=== PATIENT | male | born 1995 | race Caucasian/White ===

== ENCOUNTER 2017-10-11 15:46 | Emergency (ER) | payer BC ==
[~2017-10-11] VITALS: Ht 188 cm; Wt 67.9 kg
[2017-10-11 15:50] VITALS: TEMP 36.6; Ht 188 cm; Wt 67.9 kg
[2017-10-11] MEDS ORDERED: HYDROmorphone INJ 1 MG/ML SYR IM STA (16:01)
[2017-10-11] MEDS ORDERED: ONDANSETRON 4MG OD TAB PO STA (16:01)
--- NOTE | 2017-10-11 16:29 | EMERGENCY ROOM VISIT NOTE ---
History Report prepared by Alicia: Alden Valencia Under the Supervision of: Dr. Gino Infante M.D. First contact with patient: 15:57 Chief Complaint: TESTICULAR PAIN Stated Complaint: TESTICLE PAIN,CHILLS, ABD PAIN,NAUSEA,NUMB HANDS History of Present Illness The patient is a 22 year old male who presents to the Emergency Room with complaints of constant right testicular pain starting around 1430 today while doing homework. He currently rates her discomfort as an 8/10 in severity. The patient states that he has been nauseous and vomiting. The patient notes that he has a history of an appendectomy. He denies any history of torsion. Source of History: patient Onset: 1430 Position: other (right testicular) Symptom Intensity: 8/10 Timing: constant Associated Symptoms: + nausea, + vomiting Review of Systems See HPI for pertinent positives & negatives. A total of 10 systems reviewed and were otherwise negative. Past Medical & Surgical Surgical Problems: (1) History of appendectomy Social History Smoking Status: Former Smoker Marital Status: single Housing Status: lives with roommate Occupation Status: [employer] Current/Historical Medications Scheduled Ciprofloxacin Hcl (Cipro), 1 TAB PO BID Allergies Coded Allergies: Sulfa Antibiotics (Unverified Allergy, Unknown, ., 10/11/17) Physical Exam Vital Signs Date Time Temp Pulse Resp B/P (MAP) Pulse Ox O2 Delivery O2 Flow Rate FiO2 10/11/17 19:40 88 107/68 99 10/11/17 18:42 72 99/54 98 Room Air 10/11/17 15:50 36.6 63 18 120/56 96 Room Air Physical Exam GENERAL: Patient is a healthy-appearing well-nourished male HEAD: Normocephalic atraumatic EYES: Ocular movements intact pupils equal and react to light OROPHARYNX mucous membranes are moist no exudates present no erythema or edema present NECK: Supple no nuchal rigidity CHEST: Good equal expansion LUNGS: Clear and equal to auscultation CARDIAC: Normal S1 and S2 ABDOMEN: Soft nontender no guarding BACK: No CVA tenderness : Tenderness to the right testicle. EXTREMITIES: No pain upon palpation normal muscle strength in all groups no clubbing cyanosis or edema NEURO: Patient is following commands and answering questions appropriately. Alert and oriented x3 Cranial Nerves 2-12 grossly intact Medical Decision & Procedures ER Provider Diagnostic Interpretation: Radiology results as stated below per my review and radiologist interpretation: (TESTICULAR) SCROTUM-CONT CLINICAL HISTORY: 22 years-old Male with Pt c/o severe testicular pain . Acute severe testicular pain with chills, abdominal pain and nausea COMPARISON STUDY: None available TECHNIQUE: Real-time, grayscale, and color Doppler sonography of the testes and scrotum is performed. Images are reviewed in the transverse and longitudinal planes. FINDINGS: RIGHT HEMISCROTUM: The right testis measures 5.2 x 2.7 x 2.8 cm and the parenchyma appears unremarkable. No intratesticular mass is seen. Normal-appearing arterial inflow is present within the right testicle. The right epididymal head appears normal. No varicocele or hydrocele is identified. LEFT HEMISCROTUM: The left testis measures 5.1 x 2.3 x 3.3 cm and the parenchyma appears unremarkable. No intratesticular mass is seen. Normal-appearing arterial inflow is present within the left testicle. The left epididymal head appears normal. No varicocele or hydrocele is identified. IMPRESSION: Unremarkable sonographic appearance of the bilateral testicles and epididymides without evidence of torsion or mass. The above report was generated using voice recognition software. It may contain grammatical, syntax or spelling errors. Electronically signed by: Shiraz Cheng M.D. 10/11/2017 4:50 PM Dictated Date/Time: 10/11/2017 4:47 PM RENAL ULTRASOUND CLINICAL HISTORY: Right flank pain. COMPARISON STUDY: None. TECHNIQUE: Sonography of the kidneys and the urinary bladder was performed. FINDINGS: The right kidney measures 11.5 x 5.7 x 6.9 cm and the left measures 11.2 x 5.5 x 6 cm. There is no hydronephrosis. No calculi or masses are identified by sonography. Renal echogenicity, size and cortical thickness are normal. Neither ureteral jet was identified. IMPRESSION: Normal renal ultrasound. No hydronephrosis. Electronically signed by: Francis Matos M.D. 10/11/2017 5:23 PM Dictated Date/Time: 10/11/2017 5:22 PM KUB HISTORY: Acute right-sided flank pain Pt c/o Rt sided flank pain COMPARISON: Renal ultrasound of same day. FINDINGS: The bowel gas pattern is non-obstructive. There is no organomegaly. No renal calculi. No ureteral calculi. Probable phlebolith of the right hemipelvis, 2 mm. No pneumoperitoneum or pneumatosis. No fracture. 10 mm sclerotic focus of the right proximal femur suggests bone island. IMPRESSION: 1. Nonobstructive bowel gas pattern. 2. No renal or ureteral stones. Electronically signed by: Shiraz Cheng M.D. 10/11/2017 5:45 PM Dictated Date/Time: 10/11/2017 5:43 PM Laboratory Results 10/11/17 17:40 Red Blood Count 4.96, Mean Corpuscular Volume 87.7, Mean Corpuscular Hemoglobin 31.7, Mean Corpuscular Hemoglobin Concent 36.1, Mean Platelet Volume 9.3, Neutrophils (%) (Auto) 86.0, Lymphocytes (%) (Auto) 8.2, Monocytes (%) (Auto) 5.0, Eosinophils (%) (Auto) 0.3, Basophils (%) (Auto) 0.2, Neutrophils # (Auto) 10.08, Lymphocytes # (Auto) 0.96, Monocytes # (Auto) 0.58, Eosinophils # (Auto) 0.03, Basophils # (Auto) 0.02 10/11/17 17:40 Test 10/11/17 17:40 10/11/17 17:55 White Blood Count 11.71 K/uL (4.8-10.8) Red Blood Count 4.96 M/uL (4.7-6.1) Hemoglobin 15.7 g/dL (14.0-18.0) Hematocrit 43.5 % (42-52) Mean Corpuscular Volume 87.7 fL (80-100) Mean Corpuscular Hemoglobin 31.7 pg (25-34) Mean Corpuscular Hemoglobin Concent 36.1 g/dl (32-36) Platelet Count 246 K/uL (130-400) Mean Platelet Volume 9.3 fL (7.4-10.4) Neutrophils (%) (Auto) 86.0 % Lymphocytes (%) (Auto) 8.2 % Monocytes (%) (Auto) 5.0 % Eosinophils (%) (Auto) 0.3 % Basophils (%) (Auto) 0.2 % Neutrophils # (Auto) 10.08 K/uL (1.4-6.5) Lymphocytes # (Auto) 0.96 K/uL (1.2-3.4) Monocytes # (Auto) 0.58 K/uL (0.11-0.59) Eosinophils # (Auto) 0.03 K/uL (0-0.5) Basophils # (Auto) 0.02 K/uL (0-0.2) RDW Standard Deviation 40.1 fL (36.4-46.3) RDW Coefficient of Variation 12.5 % (11.5-14.5) Immature Granulocyte % (Auto) 0.3 % Immature Granulocyte # (Auto) 0.04 K/uL (0.00-0.02) Anion Gap 6.0 mmol/L (3-11) Est Creatinine Clear Calc Drug Dose 103.0 ml/min Estimated GFR () 111.9 Estimated GFR (Non- 96.5 BUN/Creatinine Ratio 14.2 (10-20) Calcium Level 9.3 mg/dl (8.5-10.1) Total Bilirubin 0.6 mg/dl (0.2-1) Direct Bilirubin 0.2 mg/dl (0-0.2) Aspartate Amino Transf (AST/SGOT) 16 U/L (15-37) Alanine Aminotransferase (ALT/SGPT) 32 U/L (12-78) Alkaline Phosphatase 73 U/L (45-117) Total Protein 7.5 gm/dl (6.4-8.2) Albumin 4.6 gm/dl (3.4-5.0) Lipase 140 U/L (73-393) Urine Color DK YELLOW Urine Appearance CLEAR (CLEAR) Urine pH 7.5 (4.5-7.5) Urine Specific [place] 1.022 (1.000-1.030) Urine Protein 1+ (NEG) Urine Glucose (UA) NEG (NEG) Urine Ketones NEG (NEG) Urine Occult Blood 1+ (NEG) Urine Nitrite NEG (NEG) Urine Bilirubin NEG (NEG) Urine Urobilinogen NEG (NEG) Urine Leukocyte Esterase TRACE (NEG) Urine WBC (Auto) 5-10 /hpf (0-5) Urine RBC (Auto) 5-10 /hpf (0-4) Urine Hyaline Casts (Auto) 5-10 /lpf (0-5) Urine Epithelial Cells (Auto) >30 /lpf (0-5) Urine Bacteria (Auto) 1+ (NEG) Urine Renal Epithelial Cells /lpf (0-5) Urine Mucus PRESENT (NONE PRSENT) Urine Sperm (Auto) PRESENT (NOT PRESENT) Labs reviewed by ED physician. Medications Administered Medications (Trade) Dose Ordered Sig/Kamlesh Route Start Time Stop Time Status Last Admin Dose Admin Ondansetron HCl (Zofran Odt) 4 mg ONE STAT PO 10/11/17 16:01 10/11/17 16:03 DC 10/11/17 16:01 4 MG Hydromorphone HCl (Dilaudid Inj) 1 mg NOW STAT IM 10/11/17 16:01 10/11/17 16:03 DC 10/11/17 16:01 1 MG Ceftriaxone Sodium (Rocephin Inj) 1 gm NOW STAT IV 10/11/17 18:37 10/11/17 18:39 DC 10/11/17 19:05 1 GM Azithromycin (Zithromax Tab) 1,000 mg NOW STAT PO 10/11/17 18:37 10/11/17 18:39 DC 10/11/17 19:06 1,000 MG Ciprofloxacin (Cipro Tab) 500 mg NOW STAT PO 10/11/17 18:37 10/11/17 18:39 DC 10/11/17 19:05 500 MG ED Course 1557: Past medical records reviewed. The patient was evaluated in room B7. A complete history and physical examination was performed. 1601: Dilaudid 1mg IM, Zofran Odt 4mg PO Medical Decision Differential diagnosis: Etiologies such as torsion, mass, infection, hernia, hydrocele, epididymitis, trauma, intra-abdominal process, as well as others were entertained. This is a 22-year-old male who presents emergency department complaining of testicular pain. Based on the patient's presentation he was immediate was sent for an ultrasound of the testicles however there is no evidence of torsion on the ultrasound. The patient's parents did show up in the emergency department and I did discuss this finding with the parents. As the patient's pain is radiating into his back I feel he most likely has a kidney stone. In addition serial abdominal examinations were performed on both the patient's scrotum as well as his abdomen and at no time did the patient exhibit a surgical abdomen or evidence of testicular torsion. Based on these findings I felt he is most likely suffering from a kidney stone. His KUB shows a 2 mm calcification that I believe the patient may have already passed. In addition the patient has a large amount of white blood cells in his urine. Based on this finding I will treat the patient as if he hasn't infection. He was given Rocephin azithromycin and Cipro in the emergency department. The patient this point was pain-free and was refusing pain medications for her at home. I do feel he can be discharged however is stressed the need to return if his pain continues or if he develops fevers. Patient and parents were in agreement with the treatment plan. Impression Primary Impression: Flank pain Additional Impression: UTI (urinary tract infection) Scribe Attestation The scribe's documentation has been prepared under my direction and personally reviewed by me in its entirety. I confirm that the note above accurately reflects all work, treatment, procedures, and medical decision making performed by me. Departure Information Dispostion Home / Self-Care Prescriptions Ciprofloxacin Hcl (CIPRO) 500 Mg Tab 1 TAB PO BID for 10 Days, #20 TAB Prov: Gino Infante MD 10/11/17 Referrals No Doctor, Assigned (PCP) Patient Instructions My [facility] Problem Qualifiers Additional Impression: UTI (urinary tract infection) Urinary tract infection type: acute cystitis Hematuria presence: with hematuria Qualified Codes: N30.01 - Acute cystitis with hematuria
--- NOTE | 2017-10-11 16:51 | DIAGNOSTIC IMAGING REPORT ---
(TESTICULAR) SCROTUM-CONT CLINICAL HISTORY: 22 years-old Male with Pt c/o severe testicular pain . Acute severe testicular pain with chills, abdominal pain and nausea COMPARISON STUDY: None available TECHNIQUE: Real-time, grayscale, and color Doppler sonography of the testes and scrotum is performed. Images are reviewed in the transverse and longitudinal planes. FINDINGS: RIGHT HEMISCROTUM: The right testis measures 5.2 x 2.7 x 2.8 cm and the parenchyma appears unremarkable. No intratesticular mass is seen. Normal-appearing arterial inflow is present within the right testicle. The right epididymal head appears normal. No varicocele or hydrocele is identified. LEFT HEMISCROTUM: The left testis measures 5.1 x 2.3 x 3.3 cm and the parenchyma appears unremarkable. No intratesticular mass is seen. Normal-appearing arterial inflow is present within the left testicle. The left epididymal head appears normal. No varicocele or hydrocele is identified. IMPRESSION: Unremarkable sonographic appearance of the bilateral testicles and epididymides without evidence of torsion or mass. The above report was generated using voice recognition software. It may contain grammatical, syntax or spelling errors. Electronically signed by: Shiraz Cheng M.D. 10/11/2017 4:50 PM Dictated Date/Time: 10/11/2017 4:47 PM
--- NOTE | 2017-10-11 17:24 | DIAGNOSTIC IMAGING REPORT ---
RENAL ULTRASOUND CLINICAL HISTORY: Right flank pain. COMPARISON STUDY: None. TECHNIQUE: Sonography of the kidneys and the urinary bladder was performed. FINDINGS: The right kidney measures 11.5 x 5.7 x 6.9 cm and the left measures 11.2 x 5.5 x 6 cm. There is no hydronephrosis. No calculi or masses are identified by sonography. Renal echogenicity, size and cortical thickness are normal. Neither ureteral jet was identified. IMPRESSION: Normal renal ultrasound. No hydronephrosis. Electronically signed by: Francis Matos M.D. 10/11/2017 5:23 PM Dictated Date/Time: 10/11/2017 5:22 PM
--- NOTE | 2017-10-11 17:46 | DIAGNOSTIC IMAGING REPORT ---
KUB HISTORY: Acute right-sided flank pain Pt c/o Rt sided flank pain COMPARISON: Renal ultrasound of same day. FINDINGS: The bowel gas pattern is non-obstructive. There is no organomegaly. No renal calculi. No ureteral calculi. Probable phlebolith of the right hemipelvis, 2 mm. No pneumoperitoneum or pneumatosis. No fracture. 10 mm sclerotic focus of the right proximal femur suggests bone island. IMPRESSION: 1. Nonobstructive bowel gas pattern. 2. No renal or ureteral stones. Electronically signed by: Shiraz Cheng M.D. 10/11/2017 5:45 PM Dictated Date/Time: 10/11/2017 5:43 PM
[2017-10-11 18:06] LABS: BASO % 0.2 %; BASO ABS # 0.02 K/uL (0-0.2); COMPLETE YES; EOS % 0.3 %; HEMATOCRIT 43.5 % (42-52); IG% 0.3 %; LYMPH % 8.2 %; LYMPH ABS # 0.96 K/uL (1.2-3.4); MEAN CELL VOLUME 87.7 fL (80-100); MEAN CORPUSCULAR HEMOGLOBIN 31.7 pg (25-34); MEAN CORPUSCULAR HGB CONC 36.1 g/dl (32-36); MEAN PLATELET VOLUME 9.3 fL (7.4-10.4); PLATELET COUNT 246 K/uL (130-400); RED BLOOD COUNT 4.96 M/uL (4.7-6.1); WHITE BLOOD COUNT 11.71 K/uL (4.8-10.8)
[2017-10-11 18:12] LABS: URINE APPEARANCE CLEAR (CLEAR); URINE BILIRUBIN NEG (NEG); URINE COLOR DK YELLOW; URINE EPITHELIAL CELL AUTO >30 /lpf (0-5); URINE NITRITE NEG (NEG); URINE PH 7.5 (4.5-7.5); URINE SPECIFIC GRAVITY 1.022 (1.000-1.030); UROBILINOGEN NEG (NEG)
[2017-10-11 18:23] LABS: MANUAL MICROSCOPIC REQUIRED? NO; REVIEW REQ? YES; SULFASALICYLIC ACID POS (NEG); ZZUR CULT IF INDIC CLEAN CATCH YES
[2017-10-11 18:25] LABS: URINE MUCUS PRESENT (NONE PRSENT)
[2017-10-11 18:26] LABS: BUN/CREATININE RATIO 14.2 (10-20); CALCIUM 9.3 mg/dl (8.5-10.1); CREATININE 1.09 mg/dl (0.60-1.40); POTASSIUM 3.5 mmol/L (3.5-5.1)
[2017-10-11] MEDS ORDERED: CEFTRIAXONE SOD INJ 1 GM ADDVIAL IV STA (18:37)
[2017-10-11] MEDS ORDERED: CIPROFLOXACIN 500 MG TAB PO STA (18:37)
[2017-10-11] MEDS ORDERED: AZITHROMYCIN 250 MG TAB PO STA (18:37)
[2017-10-11] MEDS ORDERED: CIPR-255 PO (18:39)
[2017-10-11 19:40] VITALS: BP 107/68; PULSE 88; O2SAT 99
== END 2017-10-11 19:40 | disposition home or self-care (01) ==
LOC: C.EDB 15:48
DX: R10.9 Unspecified abdominal pain (principal); N30.01 Acute cystitis with hematuria; Z90.89 Acquired absence of other organs; Z87.891 Personal history of nicotine dependence